=== PATIENT | male | born 1960 | race Caucasian/White ===

== ENCOUNTER 2019-11-01 15:34 | Observation (INO) | payer OTHER ==
[~2019-11-01] VITALS: Ht 167.6 cm; Wt 77.1 kg
--- NOTE | ~2019-11-01 | EKG ---
[place] [address] ELECTROCARDIOGRAM REPORT Name: RAMIREZ FLAHERTY Room: [address] ADM IN .R.#: [id number] Admission: 11/01/19 Attend Phys: Julius Brenner Discharge: Date of : 64 Date of Service: 11/01/19 1543 Report #: [id number] THIS REPORT FOR: cc: KEVON - No family physician/PCP FAM - No family physician/PCP Rosy Gallegos MD ~ THIS REPORT FOR: //name// [facility] ED Test Date: 2019-11-01 Test Time: 15:43:50 Pat Name: RAMIREZ FLAHERTY Department: Room: [facility] Gender: M Rigger Third: CHRISTIAN : 1960 Requested By: Daren Mendoza Order Number: [id number] MD: Measurements Intervals [place] Rate: 91 P: 33 CA: 151 QRS: 10 QRSD: 86 T: 56 QT: 341 QTc: 420 Interpretive Statements Sinus rhythm Anterior infarct, old Baseline wander in lead(s) V2 Compared to ECG 01/02/2017 12:09:06 Myocardial infarct finding now present [email or web address] By: 1543 1543 Epiphany EpiphanyMD /СВЕТЛАНА
[~2019-11-01 15:34] MED LIST: CEPHALEXIN 500500 M3 PO; CLARITIN5 MG PO; HYDROCODONE-AP1 EAC6 PO; IBUPROFEN 800800 M1 PO; NOHOMEMEDICATIONS
[2019-11-01 15:41] VITALS: BP 115/76
[2019-11-01 16:15] LABS: ABSOLUTE LYMPHOCYTES 1.2 thou/uL (0.8-5.3); ABSOLUTE MONOCYTES 0.3 thou/uL (0.0-1.2); ABSOLUTE NEUTROPHILS 2.9 thou/uL (1.6-8.1); BASOPHILS 0.8 %; HEMATOCRIT 40.1 % (42.0-52.0); HEMOGLOBIN 14.2 gm/dL (14.0-18.0); MCH 29.3 pg (26.0-34.0); MCHC 35.3 g/dL (28.0-37.0); MCV 82.9 fL (80.0-100.0); MONOCYTES 6.1 %; MPV 7.6 fl. (7.2-11.1); NUCLEATED RBCS 0 /100WBC; PLATELET COUNT* 124 thou/uL (150-400); POLYS 66.1 %; RBC 4.84 mil/uL (4.50-6.00); RDW-CV 15.8 % (10.5-14.5); WBC 4.3 thou/uL (4.0-11.0)
[2019-11-01 16:25] LABS: CALCIUM 8.2 mg/dL (8.5-10.1); CREATININE 1.3 mg/dL (0.6-1.3); POTASSIUM 4.1 mmol/L (3.5-5.1)
[2019-11-01 16:36] LABS: ALBUMIN 3.4 g/dL (3.4-5.0); TOTAL BILIRUBIN 0.4 mg/dL (<0.1-1.0)
[2019-11-01 16:55] LABS: INFLUENZA A ANTIGEN Negative (Negative); INFLUENZA B ANTIGEN Negative (Negative)
[2019-11-01 18:23] LABS: CALCIUM 7.1 mg/dL (8.5-10.1); CREATININE 1.1 mg/dL (0.6-1.3); POTASSIUM 3.7 mmol/L (3.5-5.1)
[2019-11-01 19:51] LABS: URINE BILIRUBIN NEGATIVE (Negative); URINE BLOOD NEGATIVE (Negative); URINE CLARITY CLEAR; URINE COLOR YELLOW; URINE GLUCOSE-RANDOM NEGATIVE (Negative); URINE KETONES TRACE (Negative); URINE LEUKOCYTES-REFLEX NEGATIVE (Negative); URINE NITRITE-REFLEX NEGATIVE (Negative); URINE PROTEIN NEGATIVE (Negative); URINE SPECIFIC GRAVITY <= 1.005 (1.005-1.030); URINE UROBILINOGEN 0.2 E.U./dl (0.2-1.0)
[2019-11-01 20:20] VITALS: BP 119/64
[2019-11-01 20:30] VITALS: BP 117/70
[2019-11-02] VITALS (7 sets, daily range): BP systolic 113–130; BP diastolic 67–85
[2019-11-02 09:27] LABS: CALCIUM 7.8 mg/dL (8.5-10.1); CREATININE 1.3 mg/dL (0.6-1.3)
[2019-11-02] MEDS ORDERED: VIBRAMYCIN 100100 MG PO (10:37)
[2019-11-02] MEDS ORDERED: MUCINEX600 MG PO (10:37)
--- NOTE | 2019-11-02 12:59 | 2DMMODE ---
[place] [address] 2 D/M-MODE ECHOCARDIOGRAM Name: RAMIREZ FLAHERTY Room: [address] Krista Wheeler#: [id number] Admission: 11/01/19 Attend Phys: Julius Brenner Discharge: Date of : 64 Date of Service: 11/02/19 1258 Report #: [id number] THIS REPORT FOR: cc: KEVON - Maria Luisa family physician/PCP KEVON - No family physician/PCP Dion Soto MD [facility] THIS REPORT FOR: //name// APPROVED REPORT Study performed: 11/02/2019 11:05:56 EXAM: Comprehensive 2D, Doppler, and color-flow Echocardiogram Patient Location: Bedside BSA: 1.84 HR: 76 bpm BP: 116/76 mmHg Other Information Study Quality: Fair Indications Pneumonia, Vascular Congestion CXR 2D Dimensions IVSd: 13.42 (7-11mm) LVOT Diam: 20.45 (18-24mm) LVDd: 44.69 mm PWd: 13.20 (7-11mm) Ascending Ao: 33.03 (22-36mm) LVDs: 30.75 (25-40mm) Aortic Root: 29.91 mm Volumes Left Atrial Volume (Systole) LA ESV Index: 31.60 mL/m2 Aortic Valve AoV Peak Wing.: 1.30 m/s AO Peak Gr.: 6.78 mmHg LVOT Max P.02 mmHg AO Mean Gr.: 4.71 mmHg LVOT Mean P.98 mmHg LVOT Max V: 1.00 m/s AO V2 VTI: 25.04 cm LVOT Mean V: 0.65 m/s TELMA (VTI): 2.39 cm2 LVOT V1 VTI: 18.24 [place] [address] 2 D/M-MODE ECHOCARDIOGRAM Name: RAMIREZ FLAHERTY Room: [address]R.#: [id number] Admission: 11/01/19 Attend Phys: Julius rBenner Discharge: Date of : 64 Date of Service: 11/02/19 1258 Report #: [id number] Mitral Valve E/A Ratio: 0.94 MV Decel. Time: 258.99 ms MV E Max Wing.: 0.66 m/s MV PHT: 75.11 ms MVA (PHT): 2.93 cm2 TDI E/Lateral E': 4.13 E/Medial E': 4.71 Medial E' Wing.: 0.14 m/s Lateral E' Wing.: 0.16 m/s Pulmonary Valve PV Peak Wing.: 1.14 m/s PV Peak Gr.: 5.22 mmHg Tricuspid Valve RAP Estimate: 5.00 mmHg TR Peak Gr.: 12.74 mmHg RVSP: 17.74 mmHg PA Pressure: 17.74 mmHg Left Ventricle The left ventricle is normal size. Mild concentric left ventricular hypertrophy. Left ventricular systolic function is normal. The left ventricular ejection fraction is within the normal range. LVEF is 50-55%. Right Ventricle The right ventricle is normal size. The right ventricular systolic function is normal. Atria Left atrium is mildly dilated. Interatrial septum not well visualized. The right atrium size is normal. Aortic Valve The aortic valve is not well visualized. No aortic regurgitation is present. There is no aortic valvular stenosis. Mitral Valve The mitral valve is normal in structure. Trace mitral regurgitation. No evidence of mitral valve stenosis. Tricuspid Valve The tricuspid valve is normal in structure. Trace [place] [address] 2 D/M-MODE ECHOCARDIOGRAM Name: RAMIREZ FLAHERTY [address]#: [id number] Admission: 11/01/19 Attend Phys: Julius Brenner Discharge: Date of : 64 Date of Service: 11/02/19 1258 Report #: [id number] Pulmonic Valve Pulmonic valve is not well visualized. There is no pulmonic valvular regurgitation. Great Vessels The aortic root is normal in size. IVC is not well visualized. Pericardium There is no pericardial effusion. <Conclusion> Mild concentric left ventricular hypertrophy. LVEF is 50-55%. Left atrium is mildly dilated. <ELECTRONICALLY SIGNED> By: Dion Soto MD, FACC 11/02/19 1258 1258 1258 Dion Soto MD, FACC /INF
[2019-11-02 13:39] LABS: CALCIUM 7.7 mg/dL (8.5-10.1); CREATININE 1.2 mg/dL (0.6-1.3); POTASSIUM 4.1 mmol/L (3.5-5.1)
== END 2019-11-02 14:25 | disposition home or self-care (01) ==
LOC: M.ERS 15:34 → M.TBA-ER 19:28 → M.3W 19:28
PROVIDERS: Emergency Medicine; Emergency Medicine Emergency Medical Services; Internal Medicine; ADMIT Internal Medicine
DX: J18.9 Pneumonia, unspecified organism (principal); R09.02 Hypoxemia; E87.1 Hypo-osmolality and hyponatremia; R79.1 Abnormal coagulation profile; J45.909 Unspecified asthma, uncomplicated

== ENCOUNTER 2021-10-06 09:51 | Emergency (ER) | payer OTHER ==
[~2021-10-06] VITALS: Ht 167.6 cm; Wt 74.8 kg
[~2021-10-06 09:51] MED LIST changes: +MUCINEX600 MG PO; +VIBRAMYCIN 100100 MG PO
[2021-10-06] MEDS ORDERED: ZPAK PO (12:20)
[2021-10-06] MEDS ORDERED: PREDNISONE 20 M20 MG PO (12:20)
[2021-10-06] MEDS ORDERED: VENTOLIN HFA 1818 GM INH (12:20)
[2021-10-06] MEDS ORDERED: ZOFRAN ODT4 MG PO (12:26)
[2021-10-06 12:29] VITALS: BP 140/86
== END 2021-10-06 12:30 | disposition home or self-care (01) ==
LOC: M.ERS 09:51
DX: J18.9 Pneumonia, unspecified organism (principal); M54.9 Dorsalgia, unspecified